=== PATIENT | male | born 1960 | race Caucasian/White ===

== ENCOUNTER 2020-11-25 19:51 | Emergency (ER) | payer OTHER, SELFPAY ==
--- NOTE | ~2020-11-25 | CT_ITS ---
EXAMINATION: CT ANGIOGRAM OF THE CHEST WITH AND WITHOUT CONTRAST (CT PULMONARY ANGIOGRAM FOR PE) CLINICAL INFORMATION: Reason for Exam Shortness of breath, COVID positive COMPARISON: Chest radiograph performed earlier today TECHNIQUE: Prior to contrast administration, noncontrast localization images were obtained. Subsequently, multidetector volumetric imaging was performed from the thoracic inlet to below the diaphragms following the administration of 65 mL Omnipaque 350 intravenous contrast. No contrast reaction reported Sagittal, coronal, and MIP oblique sagittal reformatted images were obtained on the CT workstation, uploaded to PACS, and reviewed. This CT examination was performed using dose optimization techniques as appropriate, variously including the following: *Automated exposure control *Adjustment of mA and/or kV according to patient size (this includes techniques or standardized protocols for targeted exams where dose is matched to indication/reason for exam; i.e. extremities or head) *Use of iterative reconstruction technique Total exam dose-length product 312 mGy-cm FINDINGS: QUALITY OF STUDY/CONTRAST BOLUS: Satisfactory. PULMONARY ARTERIES: No central or segmental pulmonary emboli. THORACIC AORTA: No aneurysm or dissection. LUNG: There are peripheral groundglass scattered opacities present in both lungs. Findings are suggestive of Covid 19. No gross lobar consolidation is seen. No suspicious lung masses are seen PLEURA: No pleural effusion or pneumothorax. MEDIASTINUM: Normal heart size. No pericardial effusion. No hilar or mediastinal lymphadenopathy. No evidence of septal bowing or right heart strain. CHEST WALL/AXILLA: No axillary or internal mammary lymphadenopathy. OSSEOUS STRUCTURES: No acute or suspicious osseous abnormality. UPPER ABDOMEN: A right lower pole renal cyst is present. No reflux of contrast into the hepatic veins to suggest elevated right heart pressures. CT/CT angio chest PE protocol IMPRESSION: 1. No pulmonary emboli detected. 2. Commonly reported imaging features of Covid 19 or viral pneumonia are present with multifocal peripheral groundglass infiltrates present. Other processes such as influenza pneumonia or organizing pneumonia, as can be seen with drug toxicity and connective tissue disease, can cause a similar imaging pattern. VTE: negative
--- NOTE | ~2020-11-25 | XR_ITS ---
EXAMINATION: XR CHEST CLINICAL INFORMATION: Shortness of breath. Covid positive COMPARISON: 04/07/2014 TECHNIQUE: Frontal view of the chest was obtained. FINDINGS: The heart and pulmonary vessels appear normal. There is some ill-defined opacity seen in the lungs which were not present previously. I would suspect that if a CT was performed, typical ground glass changes may be present. No gross consolidations. No pleural effusions XR/XR chest 1V IMPRESSION: Question of some minimal infiltrates in the lungs as described above.
[2020-11-25 20:32] VITALS: BP 121/85; PULSE 90; RESP 17; TEMP 37.8; O2SAT 95; BMI 28.0
--- NOTE | 2020-11-25 21:42 | ED.URI ---
HPI - URI/Sore Throat General Chief Complaint: Upper Respiratory Symptoms Stated Complaint: SOB/+Covid Time Seen by Provider: 11/26/20 01:49 Source: patient Mode of arrival: ambulatory Limitations: no limitations History of Present Illness HPI Narrative: 60-year-old male with recent diagnosis of COVID-19 worsening symptoms. States that he has a headache that has not gone away in a week, has a cough, shortness of breath, feels fatigued and near syncopal at times. He has had intermittent fevers and chills, and does not report any chest pain or pressure, palpitations, abdominal pain, abdominal distention, edema, loss of balance, falls, melena, hematochezia, dysuria, hematuria, or changes in vision. MD elicited complaint: fever, cough, rhinorrhea and nasal congestion Pertinent past history: other (COVID-19) Onset (ago): week(s) Consistency: constant Severity: moderate Description of mucous: clear and watery Able to tolerate fluids by mouth: Yes Exacerbating factors: speaking and deep breaths Relieving factors: nothing Associated symptoms: fever, chills, myalgias, headache, nasal congestion, sore throat, cough and shortness of breath Treatments prior to arrival: none Related Data Previous Rx's Medication Instructions Recorded albuterol sulfate 2 puff INHALATION Q4-6H PRN #8.5 g 11/26/20 benzonatate [Tessalon Perles] 100 mg PO TID PRN #60 cap 11/26/20 rnigqboayi-vfrdjowbkndjl-mqen 1 cap PO Q4-6H PRN #14 cap 11/26/20 [Fioricet] codeine-guaifenesin 10 ml PO Q4-6H PRN #473 ml 11/26/20 dexamethasone 6 mg PO DAILY 5 Days #5 tab 11/26/20 loratadine [Claritin] 10 mg PO DAILY PRN #30 tab 11/26/20 Allergies Allergy/AdvReac Type Severity Reaction Status Date / Time amoxicillin [AMOXICILLIN] Allergy Mild ITCHING Verified 11/25/20 22:17 Review of Systems Review of Systems: Constitutional: Positive headache, Positive Fever, positive Chills ENT/Mouth: No Hoarseness, No sore throat, No Rhinorrhea Eyes: No Redness, No Discharge, No Vision Changes Cardiovascular: No Chest Pain, positive SOB, positive Dyspnea on Exertion, No Edema Respiratory: positive Cough, No Sputum, positive Wheezing, Gastrointestinal: No Nausea, No Vomiting, No Diarrhea, No abdominal Pain Genitourinary: No Dysuria, No Hematuria Musculoskeletal: No joint pain, No Myalgias Skin: No rash Neuro: No Weakness, No Numbness, No Headache Psych: No anxiety, depression Heme/Lymph: No Bruising, No Bleeding Endocrine: No Polyuria, No Polydipsia Yes all other systems are reviewed and are negative [facility] Past Medical History Attestation statement: The following information was validated with the patient. Source: old records reviewed Medical History COVID-19 Hypercholesteremia Social History Social History Advance Directives: No Advance Directives Information Provided: No Physical Exam Vital Signs: Vital Signs: Last Vital Signs Temp 99.1 F 11/25/20 22:36 Pulse 67 11/26/20 01:32 Resp 18 11/26/20 01:32 BP 112/76 11/26/20 01:32 Pulse Ox 94 11/26/20 01:32 Body Mass Index 28.0 Appearance: Alert. Oriented X3. Moderate distress. Appears fatigued. Eyes: Pupils equal, round and reactive to light. ENT: Pharynx normal. Neck: Normal inspection. Neck supple. CVS: Normal heart rate and rhythm. Pulses normal. Respiratory: No respiratory distress. Breath sounds normal. Abdomen: Soft and nontender. Skin: Skin warm and dry. Normal skin color. Normal skin turgor. Extremities: No lower extremity edema. Neuro: No motor deficit. No sensory deficit. Course Course Course Narrative: 60-year-old male known COVID positive test about a week ago presents with worsening COVID-[address] PE study, ambulatory pulse ox and COVID labs. CT angio PE negative for pulmonary embolism, does have symptoms consistent with COVID-19. Patient is apprehensive about discharge home. Patient is not hypoxic, this case was discussed with hospitalist, patient does not meet admission criteria. Patient was offered case management social worker delinquency prevention, and possible [facility] facility or rehab placement. Patient declined. Will provide supportive measures and if patient's symptoms worsen he is more than welcome to return. Patient verbalized understanding of and agrees to plan of care discharge home. MDM - URI/Sore Throat MDM Narrative Medical decision making narrative: PE, COVID-19 Differential Diagnosis Differential diagnosis: Likely upper respiratory infection Medical Records Attestation: I reviewed the patient's medical records. Lab Data Attestation: I reviewed the patient's lab results. Result diagrams: 11/25/20 23:03 11/25/20 23:03 Labs: Lab Results 11/25/20 11/25/20 11/25/20 Range/Units 21:56 22:24 22:24 WBC (4.8-10.8) X10*3/uL RBC (4.60-5.80) X10*6/uL Hgb (14.0-18.0) g/dl Hct (42-52) % MCV (80-98) fL MCH (27.0-33.0) pg MCHC (31.0-36.0) g/dl RDW (11.0-16.0) % Plt Count (160-400) X10*3/uL MPV (9.4-12.4) fL Immature Gran % (Auto) (0.0-0.4) % Neut % (Auto) (45-73) % Lymph % (Auto) (20-40) % [place] % (Auto) (2-11) % Eos % (Auto) (0-4) % Baso % (Auto) (0-2) % Lymph # (Auto) (1.2-4.9) X10*3/uL [place] # (Auto) (0.1-1.2) X10*3/uL Eos # (Auto) (0.0-0.4) X10*3/uL Baso # (Auto) (0.0-0.2) X10*3/uL Abs Immat Gran (auto) (0.00-0.03) X10*3/uL Absolute Neuts (auto) (2.0-8.3) X10*3/uL Absolute Nucleated RBC (0.0-0.012) X10*3/uL Nucleated RBC % (auto) (0.0-0.2) /100WBC Smear Tech's Comments PT (10.8-13.0) SEC INR (0.9-1.1) APTT (24.1-38.0) SEC Sodium (135-145) mmol/L Potassium (3.3-5.1) mmol/L Chloride (96-108) mmol/L Carbon Dioxide (22-29) mmol/L Anion Gap (12-20) BUN (9-16) mg/dL Creatinine (0.5-1.4) mg/dL Estim Creat Clear Calc Estimated GFR Random Glucose (60-115) mg/dL Calcium (8.4-10.2) mg/dL Ferritin (20-250) ng/mL Lactate Dehydrogenase (118-273) U/L Total Creatine Kinase (38-174) U/L Troponin I High Sens 8.8 (<3.5-35.0) ng/L C-Reactive Protein (< or = 0.50) mg/dL Procalcitonin 0.07 ng/mL Coronavirus (PCR) POSITIVE A (Negative) Influenza Type A (PCR) NEGATIVE (Negative) Influenza Type B (PCR) NEGATIVE (Negative) RSV RNA Qual (PCR) NEGATIVE (Negative) 11/25/20 11/25/20 11/25/20 Range/Units 22:25 23:03 23:03 WBC 4.6 L (4.8-10.8) X10*3/uL RBC 4.96 (4.60-5.80) X10*6/uL Hgb 15.8 (14.0-18.0) g/dl Hct 44.9 (42-52) % MCV 90.5 (80-98) fL MCH 31.9 (27.0-33.0) pg MCHC 35.2 (31.0-36.0) g/dl RDW 12.2 (11.0-16.0) % Plt Count 134 L (160-400) X10*3/uL MPV 10.3 (9.4-12.4) fL Immature Gran % (Auto) 0.2 (0.0-0.4) % Neut % (Auto) 75.0 H (45-73) % Lymph % (Auto) 17.9 L (20-40) % [place] % (Auto) 6.5 (2-11) % Eos % (Auto) 0.2 (0-4) % Baso % (Auto) 0.2 (0-2) % Lymph # (Auto) 0.8 L (1.2-4.9) X10*3/uL [place] # (Auto) 0.3 (0.1-1.2) X10*3/uL Eos # (Auto) 0.0 (0.0-0.4) X10*3/uL Baso # (Auto) 0.0 (0.0-0.2) X10*3/uL Abs Immat Gran (auto) 0.01 (0.00-0.03) X10*3/uL Absolute Neuts (auto) 3.4 (2.0-8.3) X10*3/uL Absolute Nucleated RBC 0.000 (0.0-0.012) X10*3/uL Nucleated RBC % (auto) 0.0 (0.0-0.2) /100WBC Smear Tech's Comments VERIFIED PT 13.1 H (10.8-13.0) SEC INR 1.1 (0.9-1.1) APTT 34.0 (24.1-38.0) SEC Sodium (135-145) mmol/L Potassium (3.3-5.1) mmol/L Chloride (96-108) mmol/L Carbon Dioxide (22-29) mmol/L Anion Gap (12-20) BUN (9-16) mg/dL Creatinine (0.5-1.4) mg/dL Estim Creat Clear Calc Estimated GFR Random Glucose (60-115) mg/dL Calcium (8.4-10.2) mg/dL Ferritin 743 H (20-250) ng/mL Lactate Dehydrogenase 289 H (118-273) U/L Total Creatine Kinase 254 H (38-174) U/L Troponin I High Sens (<3.5-35.0) ng/L C-Reactive Protein 3.30 H (< or = 0.50) mg/dL Procalcitonin ng/mL Coronavirus (PCR) (Negative) Influenza Type A (PCR) (Negative) Influenza Type B (PCR) (Negative) RSV RNA Qual (PCR) (Negative) 11/25/20 Range/Units 23:03 WBC (4.8-10.8) X10*3/uL RBC (4.60-5.80) X10*6/uL Hgb (14.0-18.0) g/dl Hct (42-52) % MCV (80-98) fL MCH (27.0-33.0) pg MCHC (31.0-36.0) g/dl RDW (11.0-16.0) % Plt Count (160-400) X10*3/uL MPV (9.4-12.4) fL Immature Gran % (Auto) (0.0-0.4) % Neut % (Auto) (45-73) % Lymph % (Auto) (20-40) % [place] % (Auto) (2-11) % Eos % (Auto) (0-4) % Baso % (Auto) (0-2) % Lymph # (Auto) (1.2-4.9) X10*3/uL [place] # (Auto) (0.1-1.2) X10*3/uL Eos # (Auto) (0.0-0.4) X10*3/uL Baso # (Auto) (0.0-0.2) X10*3/uL Abs Immat Gran (auto) (0.00-0.03) X10*3/uL Absolute Neuts (auto) (2.0-8.3) X10*3/uL Absolute Nucleated RBC (0.0-0.012) X10*3/uL Nucleated RBC % (auto) (0.0-0.2) /100WBC Smear Tech's Comments PT (10.8-13.0) SEC INR (0.9-1.1) APTT (24.1-38.0) SEC Sodium 138 (135-145) mmol/L Potassium 4.6 (3.3-5.1) mmol/L Chloride 103 (96-108) mmol/L Carbon Dioxide 27 (22-29) mmol/L Anion Gap 13 (12-20) BUN 10 (9-16) mg/dL Creatinine 0.85 (0.5-1.4) mg/dL Estim Creat Clear Calc 103.0 Estimated GFR > 60 Random Glucose 134 H (60-115) mg/dL Calcium 8.7 (8.4-10.2) mg/dL Ferritin (20-250) ng/mL Lactate Dehydrogenase (118-273) U/L Total Creatine Kinase (38-174) U/L Troponin I High Sens (<3.5-35.0) ng/L C-Reactive Protein (< or = 0.50) mg/dL Procalcitonin ng/mL Coronavirus (PCR) (Negative) Influenza Type A (PCR) (Negative) Influenza Type B (PCR) (Negative) RSV RNA Qual (PCR) (Negative) Imaging Data CT PE: Attestation: I personally reviewed and interpreted this imaging study as follows: Radiologist's impression: EXAMINATION: CT ANGIOGRAM OF THE CHEST WITH AND WITHOUT CONTRAST (CT PULMONARY ANGIOGRAM FOR PE) CLINICAL INFORMATION: Reason for Exam Shortness of breath, COVID positive COMPARISON: Chest radiograph performed earlier today TECHNIQUE: Prior to contrast administration, noncontrast localization images were obtained. Subsequently, multidetector volumetric imaging was performed from the thoracic inlet to below the diaphragms following the administration of 65 mL Omnipaque 350 intravenous contrast. No contrast reaction reported Sagittal, coronal, and MIP oblique sagittal reformatted images were obtained on the CT workstation, uploaded to PACS, and reviewed. This CT examination was performed using dose optimization techniques as appropriate, variously including the following: *Automated exposure control *Adjustment of mA and/or kV according to patient size (this includes techniques or standardized protocols for targeted exams where dose is matched to indication/reason for exam; i.e. extremities or head) *Use of iterative reconstruction technique Total exam dose-length product 312 mGy-cm FINDINGS: QUALITY OF STUDY/CONTRAST BOLUS: Satisfactory. PULMONARY ARTERIES: No central or segmental pulmonary emboli. THORACIC AORTA: No aneurysm or dissection. LUNG: There are peripheral groundglass scattered opacities present in both lungs. Findings are suggestive of Covid 19. No gross lobar consolidation is seen. No suspicious lung masses are seen PLEURA: No pleural effusion or pneumothorax. MEDIASTINUM: Normal heart size. No pericardial effusion. No hilar or mediastinal lymphadenopathy. No evidence of septal bowing or right heart strain. CHEST WALL/AXILLA: No axillary or internal mammary lymphadenopathy. OSSEOUS STRUCTURES: No acute or suspicious osseous abnormality. UPPER ABDOMEN: A right lower pole renal cyst is present. No reflux of contrast into the hepatic veins to suggest elevated right heart pressures. CT/CT angio chest PE protocol IMPRESSION: 1. No pulmonary emboli detected. 2. Commonly reported imaging features of Covid 19 or viral pneumonia are present with multifocal peripheral groundglass infiltrates present. Other processes such as influenza pneumonia or organizing pneumonia, as can be seen with drug toxicity and connective tissue disease, can cause a similar imaging pattern. VTE: negative Chest x-ray: Attestation: I personally reviewed and interpreted this imaging study as follows: Radiologist's impression: EXAMINATION: XR CHEST CLINICAL INFORMATION: Shortness of breath. Covid positive COMPARISON: 04/07/2014 TECHNIQUE: Frontal view of the chest was obtained. FINDINGS: The heart and pulmonary vessels appear normal. There is some ill-defined opacity seen in the lungs which were not present previously. I would suspect that if a CT was performed, typical ground glass changes may be present. No gross consolidations. No pleural effusions XR/XR chest 1V IMPRESSION: Question of some minimal infiltrates in the lungs as described above. ECG Data Attestation: I personally reviewed and interpreted this ECG as follows: ECG interpretation date: 11/25/20 ECG interpretation time: 22:10 Interpretation: Vent. rate 87 BPM ND interval 182 ms QRS duration 94 ms QT/QTc 350/421 ms P-R-T axes 80 -64 10 Normal sinus rhythm Pulmonary disease pattern Incomplete right bundle branch block Left anterior fascicular block Abnormal ECG When compared with ECG of 30-SEP-2010 14:03, Vent. rate has increased BY 33 BPM Nonspecific T wave abnormality has replaced inverted T waves in Inferior leads Discharge Plan Discharge Clinical Impression: COVID-19 Patient Disposition: Home, Self-Care Instructions: COVID-19 (Coronavirus Disease 2019) (ED) Additional Instructions: You were evaluated for COVID-19 symptoms[address] We did a CT angiogram of your lungs, you do not have any blood clots. Please take albuterol inhaler 2 puffs every 4 hours as needed, Tessalon Perles 200 mg every 8 hours as needed. Please use Robitussin AC if Tessalon Perles are ineffective. You may use Fioricet for headaches. Please drink plenty of fluids. Follow-up with primary care provider as needed. If symptoms worsen please return to the emergency department. Thank you for choosing this emergency department for evaluation. Please follow-up with primary care physician as needed. Return to the emergency department for any new, concerning, or worsening symptoms. Prescriptions: New benzonatate [Tessalon Perles] 100 mg capsule 100 mg PO TID PRN (Reason: cough) Qty: 60 RF: 0 dexamethasone 6 mg tablet 6 mg PO DAILY 5 Days Qty: 5 RF: 0 codeine-guaifenesin 6.3-100 mg/5 mL liquid 10 ml PO Q4-6H PRN (Reason: cough) Qty: 473 RF: 0 omqdkhdlyv-bylfvupgqlpjq-cifw [Fioricet] 50-300-40 mg capsule 1 cap PO Q4-6H PRN (Reason: pain, headache) Qty: 14 RF: 0 albuterol sulfate 90 mcg/actuation HFA aerosol inhaler 2 puff inhalation Q4-6H PRN (Reason: shortness of breath or wheezing) Qty: 8.5 RF: 0 loratadine [Claritin] 10 mg tablet 10 mg PO DAILY PRN (Reason: allergy symptoms, postnasal drip) Qty: 30 RF: 0 Interventions: ED Discharge Assessment Last Done: 11/26/20 02:18 Discharge Date/Time: 11/26/20 02:19
--- NOTE | 2020-11-25 22:00 | ECG_ITS ---
Test Reason : SOB Blood Pressure : / mmHG Vent. Rate : 087 BPM Atrial Rate : 087 BPM P-R Int : 182 ms QRS Dur : 094 ms QT Int : 350 ms P-R-T Axes : 080 -64 010 degrees QTc Int : 421 ms Normal sinus rhythm Pulmonary disease pattern Incomplete right bundle branch block Left anterior fascicular block Abnormal ECG When compared with ECG of 30-SEP-2010 14:03, Vent. rate has increased BY 33 BPM Nonspecific T wave abnormality has replaced inverted T waves in Inferior leads Referred By: Melissa Perez Electronically Signed By:Uli Godfrey
[2020-11-25] MEDS: Benzonatate 100 MG CAPSULE 200 MG PO (22:25)
[2020-11-25] MEDS: dexAMETHasone sod phosphate 4 MG/ML VIAL 6 MG IVPUSH (22:25)
[2020-11-25] MEDS: guaiFEN/Codeine SF 200/20/10ML 10 ML LIQUID PO (22:25)
[2020-11-25 22:36] VITALS: BP 132/82; PULSE 78; RESP 20; TEMP 37.3; O2SAT 95
[2020-11-25 22:50] LABS: Influenza A PCR NEGATIVE (Negative); Influenza B PCR NEGATIVE (Negative); Resp Syncy Virus RNA Qual PCR NEGATIVE (Negative); SARS COV2 PCR INHOUSE POSITIVE (Negative)
[2020-11-25 23:01] LABS: Troponin-I High Sensitivity 8.8 ng/L (<3.5-35.0)
[2020-11-25 23:08] LABS: Basophils Percent Auto 0.2 % (0-2); Eosinophils Percent Auto 0.2 % (0-4); Imm Gran Abs Auto 0.01 X10*3/uL (0.00-0.03); Imm Gran Pct Auto 0.2 % (0.0-0.4); MANUAL DIFF FLAG SCAN; Mean Platelet Volume 10.3 fL (9.4-12.4); Monocytes Absolute Auto 0.3 X10*3/uL (0.1-1.2); PLT CLUMP 1; Red Cell Distribution Width 12.2 % (11.0-16.0); SCAN SMEAR FLAG 1
[2020-11-25 23:10] LABS: Hematocrit 44.9 % (42-52); Hemoglobin 15.8 g/dl (14.0-18.0); Lymphocytes Absolute Auto 0.8 X10*3/uL (1.2-4.9); Lymphocytes Percent Auto 17.9 % (20-40); Mean Corpuscular HGB Conc 35.2 g/dl (31.0-36.0); Mean Corpuscular Hemoglobin 31.9 pg (27.0-33.0); Mean Corpuscular Volume 90.5 fL (80-98); Monocytes Percent Auto 6.5 % (2-11); Neutrophils Absolute Auto 3.4 X10*3/uL (2.0-8.3); Platelet Count 134 X10*3/uL (160-400); Red Blood Count 4.96 X10*6/uL (4.60-5.80); White Blood Count 4.6 X10*3/uL (4.8-10.8)
[2020-11-25 23:12] LABS: SLIDE REVIEW VERIFIED
[2020-11-25 23:14] LABS: INTERNATIONAL NORM RATIO 1.1 (0.9-1.1); Prothrombin Time 13.1 SEC (10.8-13.0)
[2020-11-25 23:20] LABS: Lactate Dehydrogenase 289 U/L (118-273)
[2020-11-25 23:28] LABS: Anion Gap 13 (12-20); Blood Urea Nitrogen 10 mg/dL (9-16); Calcium 8.7 mg/dL (8.4-10.2); Carbon Dioxide 27 mmol/L (22-29); Chloride 103 mmol/L (96-108); Estimated Glomerular Filt Rate > 60; Glucose Random 134 mg/dL (60-115); Potassium 4.6 mmol/L (3.3-5.1); Sodium 138 mmol/L (135-145)
[2020-11-25 23:28] LABS: Ferritin 743 ng/mL (20-250)
[2020-11-25 23:34] LABS: Procalcitonin 0.07 ng/mL
--- NOTE | 2020-11-25 23:46 | PC.NURSE ---
Pt ambulatory with steady gait to CT for CTA
[2020-11-26] MEDS: iohexoL 350 MG/ML 100 ML INFUS..BTL 65 ML IV (00:06)
[2020-11-26 01:13] VITALS: O2SAT 93
[2020-11-26 01:32] VITALS: BP 112/76; PULSE 67; RESP 18; O2SAT 94
[2020-11-26] MEDS: Loratadine 10 MG TABLET PO (01:34)
[2020-11-26] MEDS: Butalb/Acetamin/Caff 50/325/40 TABLET 1 TAB PO (01:34)
[2020-11-26] MEDS: Albuterol Sulfate 90 MCG 8 GM INHALER 2 PUFF INHALE (01:34)
== END 2020-11-26 02:19 | disposition home or self-care (01) ==
PROVIDERS: Nurse Practitioner Family; Emergency Provider Emergency Medicine Emergency Medical Services; PCP Internal Medicine
DX: U07.1 COVID-19 (principal); R06.02 Shortness of breath; R50.9 Fever, unspecified; R51.9 Headache, unspecified; Z79.899 Other long term (current) drug therapy
CPT/HCPCS: 0241U; 36415; 71045; 71275; 80048; 82550; 82728; 83615; 84145; 84484; 85025; 85610; 85730; 86140; 93005; 96374; 99284; J1100; Q9967

== ENCOUNTER 2020-12-25 08:12 | Outpatient (REF) | payer OTHER, SELFPAY ==
--- NOTE | ~2020-12-25 | XR_ITS ---
EXAMINATION: XR CHEST CLINICAL INFORMATION: Covid 19. SOB. COMPARISON: Chest x-ray 11/25/2020 TECHNIQUE: 2 views of the chest were obtained. FINDINGS: The lungs are hyperinflated but clear. The heart size and vascularity is normal. No gross bony abnormality. No change from 11/25/2020 XR/XR chest 2V IMPRESSION: Hyperinflated lungs without acute process. There is no infiltrate seen at this time.
[2020-12-25 11:24] LABS: MANUAL DIFF FLAG NO
[2020-12-25 11:40] LABS: Basophils Percent Auto 0.4 % (0-2); Eosinophils Absolute Auto 0.2 X10*3/uL (0.0-0.4); Eosinophils Percent Auto 3.9 % (0-4); Hematocrit 42.8 % (42-52); Hemoglobin 14.9 g/dl (14.0-18.0); Imm Gran Abs Auto 0.01 X10*3/uL (0.00-0.03); Imm Gran Pct Auto 0.2 % (0.0-0.4); Lymphocytes Percent Auto 35.4 % (20-40); Mean Corpuscular HGB Conc 34.8 g/dl (31.0-36.0); Mean Corpuscular Hemoglobin 31.5 pg (27.0-33.0); Mean Corpuscular Volume 90.5 fL (80-98); Mean Platelet Volume 10.6 fL (9.4-12.4); Monocytes Absolute Auto 0.6 X10*3/uL (0.1-1.2); Monocytes Percent Auto 10.7 % (2-11); Neutrophils Absolute Auto 2.8 X10*3/uL (2.0-8.3); Neutrophils Percent Auto 49.4 % (45-73); Platelet Count 230 X10*3/uL (160-400); Red Blood Count 4.73 X10*6/uL (4.60-5.80); Red Cell Distribution Width 12.7 % (11.0-16.0); White Blood Count 5.6 X10*3/uL (4.8-10.8)
[2020-12-25 11:45] LABS: Prothrombin Time 11.9 SEC (10.8-13.0)
[2020-12-25 12:12] LABS: Alanine Aminotransferase 49 U/L (0-40); Albumin Level 4.2 g/dL (3.5-5.0); Alkaline Phosphatase 53 U/L (39-117); Anion Gap 13 (12-20); Aspartate Amino Transferase 28 U/L (5-37); Bilirubin Total 0.7 mg/dL (0.0-1.0); Blood Urea Nitrogen 19 mg/dL (9-16); C Reactive Protein 0.16 mg/dL (< or = 0.50); Calcium 9.3 mg/dL (8.4-10.2); Carbon Dioxide 26 mmol/L (22-29); Chloride 105 mmol/L (96-108); Estimated Glomerular Filt Rate > 60; Glucose Random 106 mg/dL (60-115); Lactate Dehydrogenase 204 U/L (118-273); Potassium 4.3 mmol/L (3.3-5.1); Sodium 140 mmol/L (135-145); Total Protein 6.8 g/dL (6.5-8.0)
[2020-12-25 12:40] LABS: Ferritin 534 ng/mL (20-250)
[2020-12-28 07:39] LABS: SARS COV2 IgG Positive (Negative)
== END 2020-12-25 08:13 | disposition home or self-care (01) ==
LOC: HO.HMGCX 08:12
PROVIDERS: PCP Internal Medicine; Visit Provider Internal Medicine
DX: U07.1 COVID-19 (principal)
CPT/HCPCS: 36415; 71046; 80053; 82550; 82728; 83615; 85025; 85610; 86140; 86769

== ENCOUNTER 2021-04-29 06:35 | Outpatient (REF) | payer OTHER, SELFPAY ==
[2021-04-29 11:37] LABS: MANUAL DIFF FLAG NO
[2021-04-29 11:42] LABS: Appearance Urine CLEAR; Color Urine YELLOW; Glucose Urine UA NEG (NEG); Leukocyte Esterase Urine NEG (NEG); Nitrite Urine NEG (NEG); Specific Gravity - Urine 1.015 (1.005-1.025); Urine Blood NEG (NEG); Urine Ketones NEG (NEG); Urine Protein NEG (NEG-TRACE)
[2021-04-29 11:47] LABS: Basophils Percent Auto 0.9 % (0-2); Eosinophils Absolute Auto 0.3 X10*3/uL (0.0-0.4); Eosinophils Percent Auto 5.6 % (0-4); Hematocrit 43.8 % (42-52); Hemoglobin 15.2 g/dl (14.0-18.0); Imm Gran Abs Auto 0.01 X10*3/uL (0.00-0.03); Imm Gran Pct Auto 0.2 % (0.0-0.4); Lymphocytes Absolute Auto 1.8 X10*3/uL (1.2-4.9); Mean Corpuscular HGB Conc 34.7 g/dl (31.0-36.0); Mean Corpuscular Hemoglobin 31.5 pg (27.0-33.0); Mean Corpuscular Volume 90.7 fL (80-98); Mean Platelet Volume 10.9 fL (9.4-12.4); Monocytes Absolute Auto 0.5 X10*3/uL (0.1-1.2); Monocytes Percent Auto 10.5 % (2-11); Neutrophils Absolute Auto 1.9 X10*3/uL (2.0-8.3); Neutrophils Percent Auto 41.8 % (45-73); Platelet Count 202 X10*3/uL (160-400); Red Blood Count 4.83 X10*6/uL (4.60-5.80); White Blood Count 4.5 X10*3/uL (4.8-10.8)
[2021-04-29 12:01] LABS: Alanine Aminotransferase 19 U/L (0-40); Alkaline Phosphatase 42 U/L (39-117); Anion Gap 11 (12-20); Aspartate Amino Transferase 17 U/L (5-37); Blood Urea Nitrogen 15 mg/dL (9-16); Calcium 9.2 mg/dL (8.4-10.2); Carbon Dioxide 27 mmol/L (22-29); Chloride 106 mmol/L (96-108); Cholesterol 183 mg/dL; Estimated Glomerular Filt Rate > 60; Glucose Fasting 111 mg/dL (60-99); HDL Cholesterol 52 mg/dL; LDL Cholesterol Calculated 112 mg/dl; Potassium 4.2 mmol/L (3.3-5.1); Sodium 140 mmol/L (135-145); Total Protein 6.4 g/dL (6.5-8.0); Triglycerides 97 mg/dL
[2021-04-29 12:14] LABS: PSA,Total (Free>4and<10) 1.51 ng/mL (0.00-4.00); Thyroid Stimulating Hormone 3.15 uIU/mL (0.32-4.0); Vitamin D 25-OH Total 22.2 ng/mL (>30)
[2021-04-29 12:26] LABS: RBC Urine 0 /HPF (0); WBC Urine 0 /HPF (0-4)
== END 2021-04-29 06:36 | disposition home or self-care (01) ==
LOC: HO.HMGCLDS 06:35
PROVIDERS: PCP Internal Medicine; Visit Provider Internal Medicine
DX: Z00.00 Encounter for general adult medical examination without abnormal findings (principal); Z12.5 Encounter for screening for malignant neoplasm of prostate; E78.00 Pure hypercholesterolemia, unspecified; I10 Essential (primary) hypertension
CPT/HCPCS: 36415; 80053; 80061; 81001; 82306; 84153; 84443; 85025

== ENCOUNTER 2022-05-05 06:29 | Outpatient (REF) | payer OTHER, SELFPAY ==
[2022-05-05 11:34] LABS: MANUAL DIFF FLAG NO
[2022-05-05 11:46] LABS: Basophils Absolute Auto 0.1 X10*3/uL (0.0-0.2); Basophils Percent Auto 0.9 % (0-2); Eosinophils Absolute Auto 0.3 X10*3/uL (0.0-0.4); Eosinophils Percent Auto 5.6 % (0-4); Hematocrit 45.1 % (42.0-52.0); Hemoglobin 15.8 g/dl (14.0-18.0); Imm Gran Abs Auto 0.01 X10*3/uL (0.00-0.03); Imm Gran Pct Auto 0.2 % (0.0-0.4); Lymphocytes Absolute Auto 2.2 X10*3/uL (1.2-4.9); Lymphocytes Percent Auto 39.5 % (20-40); Mean Corpuscular Hemoglobin 30.9 pg (27.0-33.0); Mean Corpuscular Volume 88.3 fL (80.0-98.0); Mean Platelet Volume 10.6 fL (9.4-12.4); Monocytes Absolute Auto 0.5 X10*3/uL (0.1-1.2); Monocytes Percent Auto 9.7 % (2-11); Neutrophils Absolute Auto 2.4 x10*3/uL (2.0-8.3); Neutrophils Percent Auto 44.1 % (45-73); Platelet Count 233 X10*3/uL (160-400); Red Blood Count 5.11 X10*6/uL (4.60-5.80); Red Cell Distribution Width 12.6 % (11.0-16.0); White Blood Count 5.5 X10*3/uL (4.8-10.8)
[2022-05-05 11:58] LABS: Appearance Urine Clear; Color Urine Yellow; Glucose Urine UA Negative (Negative); Leukocyte Esterase Urine Negative (Negative); Nitrite Urine Negative (Negative); Urine Blood Negative (Negative); Urine Ketones Negative (Negative); Urine Protein Negative (Neg-Trace)
[2022-05-05 12:05] LABS: Bacteria Urine None Seen (None Seen); Hyaline Casts Urine 0-2 /LPF (0-2); RBC Urine 0-2 /HPF (0-2); Squamous Epithelial Cell Urine 0-2 /HPF (0-2); WBC Urine 0-5 /HPF (0-5)
[2022-05-05 12:10] LABS: Alanine Aminotransferase 24 U/L (0-40); Albumin Level 4.2 g/dL (3.5-5.0); Alkaline Phosphatase 47 U/L (39-117); Anion Gap 14 (12-20); Aspartate Amino Transferase 19 U/L (5-37); Bilirubin Total 1.2 mg/dL (0.0-1.0); Blood Urea Nitrogen 17 mg/dL (9-16); Calcium 9.2 mg/dL (8.4-10.2); Carbon Dioxide 25 mmol/L (22-29); Chloride 105 mmol/L (96-108); Cholesterol 203 mg/dL; Estimated Glomerular Filt Rate > 60; Glucose Fasting 109 mg/dL (60-99); HDL Cholesterol 53 mg/dL; LDL Cholesterol Calculated 129 mg/dl; Potassium 4.4 mmol/L (3.3-5.1); Sodium 140 mmol/L (135-145); Total Protein 6.6 g/dL (6.5-8.0); Triglycerides 106 mg/dL
[2022-05-05 12:33] LABS: PSA,Total (Free>4and<10) 1.67 ng/mL (0.00-4.00); Thyroid Stimulating Hormone 2.14 uIU/mL (0.32-4.0); Vitamin D 25-OH Total 21.1 ng/mL (>30)
== END 2022-05-05 06:30 | disposition home or self-care (01) ==
LOC: HO.HMGCLDS 06:29
PROVIDERS: PCP Internal Medicine; Visit Provider Internal Medicine
DX: Z00.00 Encounter for general adult medical examination without abnormal findings (principal); Z12.5 Encounter for screening for malignant neoplasm of prostate; E78.00 Pure hypercholesterolemia, unspecified; I10 Essential (primary) hypertension
CPT/HCPCS: 36415; 80053; 80061; 81001; 82306; 84153; 84443; 85025

== ENCOUNTER 2022-06-17 15:23 | Outpatient (REF) | payer OTHER, SELFPAY ==
[2022-06-20 09:17] LABS: ~Hepatitis B Surface Antibody NONREACTIVE (Nonreactive)
[2022-06-22 07:46] LABS: Hepatitis A Antibody IgG Nonreactive (Nonreactive); ~Hepatitis A Antibody IgG 0.24 S/CO (0.00-0.99)
== END 2022-06-17 15:24 | disposition home or self-care (01) ==
LOC: HO.HMGCLDS 15:23
PROVIDERS: PCP Internal Medicine; Visit Provider Internal Medicine
DX: Z78.9 Other specified health status (principal)
CPT/HCPCS: 36415; 86706; 86708

== ENCOUNTER 2023-05-04 06:30 | Outpatient (REF) | payer OTHER, SELFPAY ==
[2023-05-04 11:19] LABS: MANUAL DIFF FLAG NO
[2023-05-04 11:30] LABS: Basophils Percent Auto 0.8 % (0-2); Eosinophils Absolute Auto 0.2 X10*3/uL (0.0-0.4); Eosinophils Percent Auto 3.4 % (0-4); Hematocrit 44.8 % (42.0-52.0); Hemoglobin 15.7 g/dl (14.0-18.0); Imm Gran Abs Auto 0.01 X10*3/uL (0.00-0.03); Imm Gran Pct Auto 0.2 % (0.0-0.4); Lymphocytes Absolute Auto 2.1 X10*3/uL (1.2-4.9); Lymphocytes Percent Auto 39.8 % (20-40); Mean Corpuscular Hemoglobin 32.3 pg (27.0-33.0); Mean Corpuscular Volume 92.2 fL (80.0-98.0); Monocytes Absolute Auto 0.5 X10*3/uL (0.1-1.2); Monocytes Percent Auto 9.8 % (2-11); Neutrophils Absolute Auto 2.4 x10*3/uL (2.0-8.3); Platelet Count 222 X10*3/uL (160-400); Red Blood Count 4.86 X10*6/uL (4.60-5.80); Red Cell Distribution Width 12.7 % (11.0-16.0); White Blood Count 5.2 X10*3/uL (4.8-10.8)
[2023-05-04 11:55] LABS: Alanine Aminotransferase 17 U/L (0-40); Albumin Level 4.2 g/dL (3.5-5.0); Alkaline Phosphatase 43 U/L (39-117); Anion Gap 13 (12-20); Aspartate Amino Transferase 19 U/L (5-37); Bilirubin Total 1.5 mg/dL (0.0-1.0); Blood Urea Nitrogen 13 mg/dL (9-16); Calcium 9.6 mg/dL (8.4-10.2); Carbon Dioxide 26 mmol/L (22-29); Chloride 107 mmol/L (96-108); Cholesterol 194 mg/dL (<200); Estimated Glomerular Filt Rate > 60; Glucose Fasting 111 mg/dL (60-99); HDL Cholesterol 54 mg/dL (>40); LDL Cholesterol Calculated 117 mg/dL (<100); Potassium 4.6 mmol/L (3.3-5.1); Sodium 141 mmol/L (135-145); Total Protein 6.9 g/dL (6.5-8.0); Triglycerides 116 mg/dL (<150)
[2023-05-04 12:10] LABS: PSA,Total (Free>4and<10) 1.53 ng/mL (0.00-4.00)
[2023-05-04 12:13] LABS: Thyroid Stimulating Hormone 2.91 uIU/mL (0.32-4.0)
== END 2023-05-04 06:31 | disposition home or self-care (01) ==
LOC: HO.HMGCLDS 06:30
PROVIDERS: PCP Internal Medicine; Visit Provider Internal Medicine
DX: Z00.00 Encounter for general adult medical examination without abnormal findings (principal); Z12.5 Encounter for screening for malignant neoplasm of prostate; E78.00 Pure hypercholesterolemia, unspecified; E55.9 Vitamin D deficiency, unspecified; I10 Essential (primary) hypertension
CPT/HCPCS: 36415; 80053; 80061; 82306; 84153; 84443; 85025

== ENCOUNTER 2024-01-02 07:25 | Day surgery (SDC) | payer OTHER, SELFPAY ==
[2023-12-28 14:21] VITALS: BMI 28.6
--- NOTE | 2023-12-29 10:11 | HO.ANESPROP2 ---
HPI - Anesthesia Eval Consult details Narrative: 63yo M for Colonoscopy PMFSH Active Problems Active Problems: All Active Problems COVID-19 (Acute) Past Medical History Medical History Elevated cholesterol Anxiety and depression Hypercholesteremia Surgical History Surgical History Hx of excision of mass Hx of rotator cuff surgery Hx of knee surgery H/O colonoscopy Social History Social History Are you DNR?: No Advance Directives: No Advance Directives Information Provided: Yes Nutrition Risks: No Nutritional Risk Meds Allergies Allergy/AdvReac Type Severity Reaction Status Date / Time amoxicillin [AMOXICILLIN] Allergy Mild ITCHING Verified 11/25/20 22:17 Home Medications ?Medication ?Instructions ?Recorded ?Confirmed ?Last Taken ?Type alprazolam 1 mg tablet 0.5 mg PO BID PRN Anxiety 12/28/23 12/28/23 Unknown History ibuprofen 200 mg tablet (Advil) 400 mg PO Q6H PRN Pain 12/28/23 12/28/23 10/31/23 History pravastatin 20 mg tablet 20 mg PO DAILY 12/28/23 12/28/23 Unknown History Exam Height,Weight and Vital Signs: Height 5 ft 9.25 in Weight 88.451 kg Assessment and Plan Assessment Anesthesia Assessment: Chart Reviewed
[2024-01-02 07:53] VITALS: BP 140/88; PULSE 69; RESP 18; TEMP 36.9; O2SAT 98; BMI 28.9
--- NOTE | 2024-01-02 08:04 | P.CONAN_ITS ---
[facility] Active Problems Active Problems: All Active Problems COVID-19 (Acute) Past Medical History Medical History Elevated cholesterol Anxiety and depression Hypercholesteremia Functional capacity: independent ambulation Family History Family history of problems with anesthesia: No Surgical History Surgical History Hx of excision of mass Hx of rotator cuff surgery Hx of knee surgery H/O colonoscopy History of Problems with Anesthesia: No Social History Social History Are you DNR?: No Advance Directives: No Advance Directives Information Provided: Yes Nutrition Risks: No Nutritional Risk Meds Allergies Allergy/AdvReac Type Severity Reaction Status Date / Time amoxicillin [AMOXICILLIN] Allergy Mild ITCHING Verified 11/25/20 22:17 Active Medications: Current Medications Lactated Ringer's (Lr) 1,000 mls @ 100 mls/hr IVCONT .Q10H CARLITO Home Medications ?Medication ?Instructions ?Recorded ?Confirmed ?Last Taken ?Type alprazolam 1 mg tablet 0.5 mg PO BID PRN Anxiety 12/28/23 12/28/23 Unknown History ibuprofen 200 mg tablet (Advil) 400 mg PO Q6H PRN Pain 12/28/23 12/28/23 10/31/23 History pravastatin 20 mg tablet 20 mg PO DAILY 12/28/23 12/28/23 Unknown History Exam Height,Weight and Vital Signs: Height 5 ft 9.25 in Weight 89.3 kg Last Vital Signs Temp 98.4 F 01/02/24 07:53 Pulse 69 01/02/24 07:53 Resp 18 01/02/24 07:53 BP 140/88 H 01/02/24 07:53 Pulse Ox 98 01/02/24 07:53 O2 Del Method Room Air 01/02/24 07:53 Airway Mallampati Class: II TM Dist: >3cm Neck ROM: Full Heart: RRR Lungs: CTA Assessment and Plan Assessment Anesthesia Assessment: Anesthesia Plan Discussed Final Anesthetic Review Family History of Problems with Anesthesia: No History of Problems with Anesthesia: No ASA Class: II Final Preanesthetic Review: Meds/Allgs Chart Reviewed, Consent Obtained/Reviewed and Anes Risks/Benef Reviewed Patient Risk: Low Procedure Risk: Low Anesthetic Plan Anesthetic Plan: MAC: Disposition: Standard PACU
--- NOTE | 2024-01-02 08:18 | PC.NURSE ---
PT ON THE TIOLET BECAME DIAPHORETIC AND DIZZY AFTER PUSHING PT TO BED VSS STS FEELING BETTER AFTER LAYING DOWN
[2024-01-02 08:19] VITALS: BP 132/67; PULSE 54; RESP 18; TEMP 36.5; O2SAT 98
--- NOTE | 2024-01-02 08:28 | PC.NURSE ---
FLEETS GIVEN WITH LIQUID TANNISH RESULTS NO SOLIDS
[2024-01-02 08:49] VITALS: BP 124/69; PULSE 57; RESP 18; O2SAT 97
--- NOTE | 2024-01-02 09:14 | P.HPSUR_ITS ---
Pre-Procedural Eval Section A - 24 Hr Update-Section A only Date of Service: 01/02/24 Section B - Complete if H&P > 30 days Chief Complaint: hx colonic polyps,screening Details of Present Illness: see H&P no changes Relevant Family History (Specify if Yes): No Relevant Social History: None Present Medications: see Short Stay Collaborative assessment Medical History: No relevant PMH History of Previous Operations: No relevant previous surgery Allergies: Allergies Allergy/AdvReac Type Severity Reaction Status Date / Time amoxicillin [AMOXICILLIN] Allergy Mild ITCHING Verified 11/25/20 22:17 Review of Systems Sugical H&P ROS: Negative: Constitution, Cardiovascular, Respiratory, Neurological, Psychiatric, Hem-Onc, Allergic/Immunologic, Gastrointestinal, Genitourinary, Musculoskeletal, Integumentary, Endocrine and Eyes/Ears/Nose/T hroat Exam Surgical H&P Exam: Normal: HEENT, Normal: Heart, Normal: Lungs, Normal: Extremities, Normal: Abdomen, Normal: Skin and Normal: Neurological Plan Diagnosis/Plan: Unchanged I have reviewed the history and physical and performed a pertinent physical examination on my patient. No changes have occurred unless specified. Time Spent With Patient Time: Total time managing care of this patient today ____ minutes.
[2024-01-02 10:08] VITALS: BP 106/71; PULSE 69; RESP 16; TEMP 36.3; O2SAT 97
--- NOTE | 2024-01-02 10:15 | OP_ITS ---
DATE OF SERVICE: 01/02/2024 SURGEON: Valdez Amador MD INDICATIONS: Colon cancer screening. PREOPERATIVE DIAGNOSIS: POSTOPERATIVE DIAGNOSIS: PROCEDURE PERFORMED: Colonoscopy to the terminal ileum. ESTIMATED BLOOD LOSS: COMPLICATIONS: ANESTHESIA: Monitored anesthesia care. ASSISTANTS: SPECIMENS: DESCRIPTION OF PROCEDURE: A history and physical was performed. The risks and benefits of the procedure were explained to the patient and informed consent was obtained. The patient was placed in the left lateral decubitus position. A digital rectal exam was performed and was found to be normal. The Olympus pediatric video colonoscope was introduced into the rectum and advanced to the cecum. The cecum was identified by transillumination, palpation, and identification of ileocecal valve. Examination was performed and the scope was removed. He tolerated the procedure well and was returned to recovery area in stable condition. FINDINGS: The terminal ileum was briefly examined and appeared normal. The visualized colonic mucosa was normal. The quality of the prep was fair with some undigested food material, limiting the examination in the sigmoid and rectum as well as parts of the right colon. No polyps were identified. Retroflexed examination showed internal hemorrhoids. IMPRESSION: Normal colonoscopy. RECOMMENDATIONS: 1. Follow up as needed. 2. Repeat colonoscopy is recommended in 5 years. MD HOSEA Lima/MODL / [id number]
[2024-01-02 10:21] VITALS: BP 117/84; PULSE 60; RESP 16; TEMP 36.1; O2SAT 97
--- NOTE | 2024-01-02 10:56 | HO.POSTANES ---
Post Anesthesia Evaluation Post Anesthesia Evaluation Date of Service: 01/02/24 Vital Signs: Vital Signs Temp Pulse Resp BP Pulse Ox O2 Del Method 01/02/24 10:21 97 F 60 16 117/84 97 Room Air 01/02/24 10:08 97.3 F 69 16 106/71 97 Room Air 01/02/24 08:49 57 18 124/69 97 Room Air 01/02/24 08:19 97.7 F 54 18 132/67 98 Nasal Cannula 01/02/24 07:53 98.4 F 69 18 140/88 H 98 Room Air Anesthesia: Monitored Mental Status: Awake Pain Control: Satisfactory Nausea/Vomiting: None Hydration: Adequate Anesthesia-Related Issues: No Anes. Related Issues
== END 2024-01-02 11:04 | disposition home or self-care (01) ==
PROVIDERS: PCP Internal Medicine; Visit Provider Internal Medicine Gastroenterology
PROC: 0DJD8ZZ Inspection of Lower Intestinal Tract, Via Natural or Artificial Opening Endoscopic (ICD-10-PCS; CPT 45378; principal; 2024-01-02 09:10)
DX: Z12.11 Encounter for screening for malignant neoplasm of colon (principal); K64.8 Other hemorrhoids; Z86.010 Personal history of colon polyps; Z88.0 Allergy status to penicillin
CPT/HCPCS: 45378; J0461; J1596; J2704

== ENCOUNTER 2024-01-22 10:28 | Outpatient (REF) | payer OTHER, SELFPAY ==
--- NOTE | ~2024-01-22 | US_ITS ---
EXAMINATION: US SCROTUM CLINICAL INFORMATION: Mass of left testicle. COMPARISON: None available. TECHNIQUE: A sonogram of the scrotum was performed assessing sanz-scale appearance and color Doppler flow. Spectral Doppler analysis of the arterial and venous flow were performed in the testes bilaterally. FINDINGS: RIGHT: Right testicle measures 4.3 x 2.2 x 3.1 cm, volume 15.4 mL. No testicular mass. Spectral Doppler analysis of the arterial and venous flow is normal in the right testis. The right epididymis is prominent which may relate to history of vasectomy. No right hydrocele or varicocele is seen. Right epididymal Doppler flow is normal. LEFT: Left testicle measures 4.5 x 2.3 x 2.9 cm, volume 15.7 mL. No testicular mass. Spectral Doppler analysis of the arterial and venous flow is normal in the left testis. The left epididymis is prominent which may relate to history of vasectomy. There is a 5 mm focal isoechoic avascular lesion in the epididymal tail which is nonspecific but could be a megasperm. No left hydrocele or varicocele is seen. Left epididymal Doppler flow is normal. US/US scrotum IMPRESSION: No visible testicular mass. 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 Recommend clinical correlation with physical exam and short-term follow-up scrotal ultrasound in 3 months.
== END 2024-01-22 10:29 | disposition home or self-care (01) ==
LOC: HO.HMGCX 10:28
PROVIDERS: PCP Internal Medicine; Visit Provider Internal Medicine
DX: N50.89 Other specified disorders of the male genital organs (principal)
CPT/HCPCS: 76870

== ENCOUNTER 2024-04-29 08:24 | Outpatient (REF) | payer OTHER, SELFPAY ==
--- NOTE | ~2024-04-29 | US_ITS ---
EXAMINATION: US SCROTUM CLINICAL INFORMATION: Mass of left testicle. COMPARISON: Scrotal ultrasound 01/22/2024. TECHNIQUE: A sonogram of the scrotum was performed assessing sanz-scale appearance and color Doppler flow. Spectral Doppler analysis of the arterial and venous flow were performed in the testes bilaterally. FINDINGS: RIGHT: Right testicle measures 4.4 x 2.2 x 3.4 cm, volume 17.2 mL. No focal testicular parenchymal lesions are visualized. Spectral Doppler analysis of the arterial and venous flow is normal in the right testis. Right epididymal head is normal in size. A 6 mm wedge-shaped region of increased echogenicity in the right epididymal body, possibly reflecting dancing lanre sperm though difficult to confirm given lack of cine imaging. No right hydrocele or varicocele is seen. Right epididymal Doppler flow is normal. LEFT: Left testicle measures 4.4 x 2.4 x 3.2 cm, volume 17.7 mL. No focal testicular parenchymal lesions are visualized. Spectral Doppler analysis of the arterial and venous flow is normal in the left testis. Left epididymal head is normal in size. No left hydrocele or varicocele is seen. Left epididymal Doppler flow is normal. Previously seen solid lesion in the left epididymis is no longer appreciated. US/US scrotum IMPRESSION: 1. A 6 mm wedge-shaped region of increased echogenicity in the right epididymal body, possibly reflecting dancing lanre sperm though difficult to confirm given lack of cine imaging. 2. Previously seen solid lesion in the left epididymis on prior ultrasound is not appreciated on today's exam. Electronically signed by: Yessi Lira MD 05/02/2024 05:49 PM EDT
== END 2024-04-29 08:25 | disposition home or self-care (01) ==
LOC: HO.HMGCX 08:24
PROVIDERS: PCP Internal Medicine; Visit Provider Internal Medicine
DX: N50.89 Other specified disorders of the male genital organs (principal)
CPT/HCPCS: 76870

== ENCOUNTER 2024-07-11 06:51 | Outpatient (REF) | payer OTHER, SELFPAY ==
[2024-07-11 10:14] LABS: MANUAL DIFF FLAG NO
[2024-07-11 10:27] LABS: Basophils Percent Auto 0.9 % (0-2); Eosinophils Absolute Auto 0.3 X10*3/uL (0.0-0.4); Eosinophils Percent Auto 5.5 % (0-4); Hematocrit 42.3 % (42.0-52.0); Hemoglobin 14.9 g/dl (14.0-18.0); Imm Gran Abs Auto 0.01 X10*3/uL (0.00-0.03); Imm Gran Pct Auto 0.2 % (0.0-0.4); Lymphocytes Absolute Auto 1.7 X10*3/uL (1.2-4.9); Lymphocytes Percent Auto 36.9 % (20-40); Mean Corpuscular HGB Conc 35.2 g/dl (31.0-36.0); Mean Corpuscular Hemoglobin 31.8 pg (27.0-33.0); Mean Corpuscular Volume 90.2 fL (80.0-98.0); Mean Platelet Volume 10.8 fL (9.4-12.4); Monocytes Absolute Auto 0.6 X10*3/uL (0.1-1.2); Monocytes Percent Auto 12.2 % (2-11); Neutrophils Absolute Auto 2.1 x10*3/uL (2.0-8.3); Neutrophils Percent Auto 44.3 % (45-73); Platelet Count 208 X10*3/uL (160-400); Red Blood Count 4.69 X10*6/uL (4.60-5.80); Red Cell Distribution Width 12.8 % (11.0-16.0); White Blood Count 4.7 X10*3/uL (4.8-10.8)
[2024-07-11 10:51] LABS: Alanine Aminotransferase 49 U/L (0-40); Albumin Level 3.9 g/dL (3.5-5.0); Alkaline Phosphatase 43 U/L (39-117); Anion Gap 11 (12-20); Aspartate Amino Transferase 37 U/L (5-37); Bilirubin Total 0.8 mg/dL (0.0-1.0); Blood Urea Nitrogen 18 mg/dL (9-16); Carbon Dioxide 26 mmol/L (22-29); Chloride 107 mmol/L (96-108); Cholesterol 196 mg/dL (<200); Estimated Glomerular Filt Rate > 60; Glucose Fasting 129 mg/dL (60-99); HDL Cholesterol 53 mg/dL (>40); LDL Cholesterol Calculated 124 mg/dL (<100); Sodium 140 mmol/L (135-145); Total Protein 6.7 g/dL (6.5-8.0); Triglycerides 97 mg/dL (<150)
[2024-07-11 10:58] LABS: PSA,Total (Free>4and<10) 1.66 ng/mL (0.00-4.00)
[2024-07-11 11:10] LABS: Thyroid Stimulating Hormone 2.57 uIU/mL (0.32-4.0); Vitamin D 25-OH Total 52.2 ng/mL (>30)
== END 2024-07-11 06:52 | disposition home or self-care (01) ==
LOC: HO.HMGCLDS 06:51
PROVIDERS: PCP Internal Medicine; Visit Provider Internal Medicine
DX: Z00.00 Encounter for general adult medical examination without abnormal findings (principal); Z12.5 Encounter for screening for malignant neoplasm of prostate; E78.00 Pure hypercholesterolemia, unspecified; I10 Essential (primary) hypertension; E55.9 Vitamin D deficiency, unspecified
CPT/HCPCS: 36415; 80053; 80061; 82306; 84153; 84443; 85025

== ENCOUNTER 2024-11-19 15:02 | Outpatient (AMB) | payer OTHER, SELFPAY ==
--- NOTE | 2024-11-19 15:05 | MHC.PC.OV ---
Vital Signs 11/19/24 15:07 Height 5 ft 9 in Weight 194 lb BMI 28.6 BP 118/78 Respiration 14 Pulse 56 Pulse Source Pulse Oximeter Temp 98.0 F Temp Source Temporal Artery Scan Pulse Oximetry (%) 97 Oxygen Delivery Method Room Air Intake Visit Reasons: 3 month follow up Dormitory Maid Required: No Accompanied by: Self / Same As Patient Allergies amoxicillin [AMOXICILLIN] Allergy (Mild, Verified 11/24/24 09:28) ITCHING Medication List - Last Reconciled 11/24/24 by Wally Farmer MD ibuprofen (Advil) 400 mg PO Q6H PRN pravastatin 20 mg PO DAILY Tobacco use date assessed: 11/19/24 Dental Screening Dental Screen Date: 11/19/24 Did you have a dental visit in the last 12 months?: Yes Did you have a dental problem in the last 6 months where you did not have access to dental care?: No Was dental information given to patient?: Patient has dentist [facility] Medical History (Updated 11/24/24 @ 09:29 by Wally Farmer MD) Elevated cholesterol Anxiety and depression Hypercholesteremia Surgical History Hx of excision of mass Hx of rotator cuff surgery Hx of knee surgery H/O colonoscopy (~01/02/24) Family History Father Dementia Mother Diabetes BP (high blood pressure) Social History Housing: House Alcohol intake: current Alcohol intake frequency: holidays/special occasions only Patient Tobacco Use Status: Never used Tobacco service: No Current occupational status: employed Cognitive needs: No Hearing needs: No Vision needs: Yes (rx glasses) Questionnaire PHQ-9 Over the last 2 weeks, how often have you been bothered by any of the following problems? 1. Little interest or pleasure in doing things: not at all 2. Feeling down, depressed, or hopeless: not at all 3. Trouble falling or staying asleep, or sleeping too much: not at all 4. Feeling tired or having little energy: not at all 5. Poor appetite or overeating: not at all 6. Feeling bad about yourself - or that you are a failure or have let yourself or your family down: not at all 7. Trouble concentrating on things, such as reading the newspaper or watching television: not at all 8. Moving or speaking so slowly that other people could have noticed. Or the opposite - being so fidgety or restless that you have been moving around a lot more than usual: not at all 9. Thoughts that you would be better off or of hurting yourself in some way: not at all Total score: 0 Depression Screening Interpretation: Negative Depression Screening Done: Yes Source: Developed by Drs. Iftikhar Rodrigez, Monika Lincoln, Jarrod Krishnan and colleagues, with an educational cherie from [employer]. Thrive Questionnaire Date Thrive assessed: 11/19/24 I am a: Patient What is your living situation today?: I have a steady place to live Within the past 12 months, did the food you bought not last and you didn't have the money to get more?: Never true Within the past 12 months, did you worry whether your food would run out before you got money to buy more?: Never true Do you have trouble paying for medicines?: No Do you have trouble getting transportation to medical appointments?: No Do you have trouble paying your heating and electricity bill?: No Do you have trouble taking care of your child, family member or friend?: No Do you have trouble with day-to-day activities such as bathing, preparing meals, shopping, managing finances, etc.?: No Are you currently unemployed and looking for a job?: No Are you interested in more education?: No Please select the resources that you would like help with: None Currently or been in a relationship where the following occur: No concerns reported THRIVE Score: 0 AUDIT C Alcohol Use Questionnaire (AUDIT-C) 1. How often do you have a drink containing alcohol?: Monthly or less 2. How many drinks containing alcohol do you have on a typical day when you are drinking?: 1 or 2 3. How often do you have six or more drinks on one occasion?: Never Total Score: 1 VICKY-7 AMB Questionnaire VICKY-7 Date VICKY - 7 assessed: 11/19/24 Feeling nervous, anxious, or on edge: 0 = Not at all Not being able to stop or control worryin = Not at all Worrying too much about different things: 0 = Not at all Trouble relaxin = Not at all Being so restless that it is hard to sit still: 0 = Not at all Becoming easily annoyed or irritable: 0 = Not at all Feeling afraid as if something awful might happen: 0 = Not at all Total VICKY-7 score (0-4 normal; 5-9 mild; 10-14 moderate; 15-21 severe): 0 Source: Developed by Drs. Iftikhar Rodrigez, Monika Lincoln, Jarrod Krishnan and colleagues, with an educational cherie from [employer]. Physical exam (Primary Care) Vital Signs: Last Vital Signs Temp 98.0 F 11/19/24 15:07 Pulse 56 11/19/24 15:07 Resp 14 11/19/24 15:07 BP 118/78 11/19/24 15:07 Pulse Ox 97 11/19/24 15:07 Oxygen Delivery Method Room Air 11/19/24 15:07 Care Plan Goal for BP management: Blood pressure is in range. BMI result Body Mass Index 28.6 Tobacco/Smoking Status: Tobacco use Status Tobacco use date assessed 11/19/24 11/19/24 15:13 Patient Tobacco Use Status Never used Tobacco 11/19/24 15:13 PHQ-9: PHQ-9 Score PHQ-9: Total score 0 11/19/24 15:13 Depression Screening Interpretation: Negative Thrive Assessment: Date of Thrive Assessment Date Thrive assessed 11/19/24 11/19/24 15:13 Currently or been in a relationship where the following occur: No concerns reported Advance Care Planning discussion: Exists, not on file Date of discussion: 11/19/24 Forms completed: Health Care Proxy Time spent: 1-15 minutes, not on file Actual minutes spent: 5 Coding Level of Care Code New Pt Level 4 (78293) Complex EM visit Add On G2211 Diagnoses Hypercholesteremia E78.00 Additional Codes Vital Signs *Quality* - Advance Care Planning discussion: Exists, not on file ([id number]) Vital Signs *Quality* - Time spent: 1-15 minutes, not on file ([id number]) Assessment & Plan Assessment & Plan (1) Hypercholesteremia: Code(s): E78.00 - Pure hypercholesterolemia, unspecified Category: Medical Plan: Continue statins at same dosage. Plan History of Present Illness The patient is a 64-year-old male presenting for a wellness visit and follow-up on hyperlipidemia. He previously had blood work completed in July which returned normal values, and he continues to take a statin for lipid management without issues. His colonoscopy was normal, conducted through [place]. He reports frequent urination associated with aging but denies any issues with urinary stream or incontinence. 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 Social History - Employment: Works as a training and documentation specialist, primarily from home - Living situation: Lives alone with periodic visits from adult children; daughter is in college - Driving and functional status: Drives at night without problems Review of Systems - Genitourinary: Reports frequent urination; Denies urinary hesitancy or incontinence - Sleep: Denies sleep disturbances Physical Exam General: Cooperative and healthy appearing Nutritional Appearance: Well nourished Orientation/consciousness: Patient oriented x3 Limitations: No limitations Head: Normal to inspection General: Appearance normal, both eyes and all related structures Neck: Normal visual inspection Chest: Normal palpation of entire chest wall Respiratory: Normal respiratory effort Neurology: Patient oriented x3 Results - Labs: Normal blood work in July - Tests: Normal recent colonoscopy from [place] Plan The patient will continue his current statin therapy for hyperlipidemia, as prior labs are well-managed. He is advised to monitor for any changes in urination, although current symptoms do not require intervention. Routine follow-ups are scheduled biannually. No additional tests or treatments are warranted at this time. Patient was informed and verbally consented to the use of an ambient scribe for clinic note documentation during this visit. Discussion Notes I discussed the continuation of his statin therapy for managing hyperlipidemia reference to normal blood work from July. I ensured understanding of contacting the pharmacy for medication refills when approaching scarcity, to maintain consistency in medication management. I confirmed that frequent urination did not require intervention due to the absence of concerning symptoms. I outlined the importance of continuing regular updates on his health status, and biannual visits are scheduled to monitor overall wellness. The patient consented to this plan. Patient Instructions - Continue taking your prescribed statin as directed. - Contact your pharmacy for refill reminders. - Report any changes in urination patterns. - Maintain regular health screenings. - Follow-up in six months unless new health concerns arise. - Stay active and maintain a healthy lifestyle.
[2024-11-19 15:07] VITALS: BP 118/78; PULSE 56; RESP 14; TEMP 36.7; O2SAT 97; BMI 28.6
== END 2024-11-19 15:41 | disposition home or self-care (01) ==
LOC: HO.HMCSH 15:02
PROVIDERS: PCP Internal Medicine; Visit Provider Internal Medicine
DX: E78.00 Pure hypercholesterolemia, unspecified (principal); Z00.00 Encounter for general adult medical examination without abnormal findings

== ENCOUNTER → 2024-11-19 15:02 | Outpatient (BNVA) | payer OTHER, SELFPAY | PROVIDERS: PCP Internal Medicine; Visit Provider Internal Medicine | DX: Z13.89 Encounter for screening for other disorder (principal) ==

== ENCOUNTER 2025-05-20 13:46 | Outpatient (AMB) | payer OTHER, SELFPAY ==
[2025-05-20 13:47] VITALS: BP 134/82; PULSE 52; RESP 16; TEMP 36.6; O2SAT 97; BMI 29.2
--- NOTE | 2025-05-20 13:47 | MHC.PC.OV ---
Vital Signs 05/20/25 13:47 Height 5 ft 9 in Weight 198 lb BMI 29.2 BP 134/82 Respiration 16 Pulse 52 Pulse Source Pulse Oximeter Temp 97.9 F Temp Source Temporal Artery Scan Pulse Oximetry (%) 97 Oxygen Delivery Method Room Air Intake Visit Reasons: 6 month f/u, hypercholesterolemia Labor Gang Supervisor Required: No Accompanied by: Self / Same As Patient Allergies amoxicillin (AMOXICILLIN) Allergy (Mild, Verified 05/20/25 13:48) ITCHING Tobacco use date assessed: 05/20/25 Dental Screening Dental Screen Date: 11/19/24 [facility] Medical History Elevated cholesterol Anxiety and depression Hypercholesteremia Surgical History Hx of excision of mass Hx of rotator cuff surgery Hx of knee surgery H/O colonoscopy (~01/02/24) Family History Father Dementia Mother Diabetes BP (high blood pressure) Social History Housing: House Alcohol intake: current Alcohol intake frequency: holidays/special occasions only Patient Tobacco Use Status: Never used Tobacco service: No Current occupational status: employed Cognitive needs: No Hearing needs: No Vision needs: Yes (rx glasses) Questionnaire PHQ-9 Over the last 2 weeks, how often have you been bothered by any of the following problems? 1. Little interest or pleasure in doing things: not at all 2. Feeling down, depressed, or hopeless: not at all 3. Trouble falling or staying asleep, or sleeping too much: not at all 4. Feeling tired or having little energy: not at all 5. Poor appetite or overeating: not at all 6. Feeling bad about yourself - or that you are a failure or have let yourself or your family down: not at all 7. Trouble concentrating on things, such as reading the newspaper or watching television: not at all 8. Moving or speaking so slowly that other people could have noticed. Or the opposite - being so fidgety or restless that you have been moving around a lot more than usual: not at all 9. Thoughts that you would be better off or of hurting yourself in some way: not at all Total score: 0 Depression Screening Interpretation: Negative Depression Screening Done: Yes Source: Developed by Drs. Iftikhar Rodrigez, Monika Lincoln, Jarrod Krishnan and colleagues, with an educational cherie from [employer]. Thrive Questionnaire Date Thrive assessed: 11/19/24 I am a: Patient What is your living situation today?: I have a steady place to live Within the past 12 months, did the food you bought not last and you didn't have the money to get more?: Never true Within the past 12 months, did you worry whether your food would run out before you got money to buy more?: Never true Do you have trouble paying for medicines?: No Do you have trouble getting transportation to medical appointments?: No Do you have trouble paying your heating and electricity bill?: No Do you have trouble taking care of your child, family member or friend?: No Do you have trouble with day-to-day activities such as bathing, preparing meals, shopping, managing finances, etc.?: No Are you currently unemployed and looking for a job?: No Are you interested in more education?: No Please select the resources that you would like help with: None Currently or been in a relationship where the following occur: No concerns reported THRIVE Score: 0 AUDIT C Alcohol Use Questionnaire (AUDIT-C) 1. How often do you have a drink containing alcohol?: Monthly or less 2. How many drinks containing alcohol do you have on a typical day when you are drinking?: 1 or 2 3. How often do you have six or more drinks on one occasion?: Never Total Score: 1 VICKY-7 AMB Questionnaire VICKY-7 Date VICKY - 7 assessed: 11/19/24 Feeling nervous, anxious, or on edge: 0 = Not at all Not being able to stop or control worryin = Not at all Worrying too much about different things: 0 = Not at all Trouble relaxin = Not at all Being so restless that it is hard to sit still: 0 = Not at all Becoming easily annoyed or irritable: 0 = Not at all Feeling afraid as if something awful might happen: 0 = Not at all Total VICKY-7 score (0-4 normal; 5-9 mild; 10-14 moderate; 15-21 severe): 0 Source: Developed by Drs. Iftikhar Rodrigez, Monika Lincoln, Jarrod Krishnan and colleagues, with an educational cherie from [employer]. Physical exam (Primary Care) Vital Signs: Last Vital Signs Temp 97.9 F 05/20/25 13:47 Pulse 52 05/20/25 13:47 Resp 16 05/20/25 13:47 BP 134/82 05/20/25 13:47 Pulse Ox 97 05/20/25 13:47 Oxygen Delivery Method Room Air 05/20/25 13:47 BMI result Body Mass Index 29.2 Tobacco/Smoking Status: Tobacco use Status Tobacco use date assessed 05/20/25 05/20/25 13:54 Patient Tobacco Use Status Never used Tobacco 05/20/25 13:48 PHQ-9: PHQ-9 Score PHQ-9: Total score 0 05/20/25 13:54 Depression Screening Interpretation: Negative Thrive Assessment: Date of Thrive Assessment Date Thrive assessed 11/19/24 05/20/25 13:48 Currently or been in a relationship where the following occur: No concerns reported Coding Level of Care Code Est Pt Level 4 (14681) Complex EM visit Add On G2211 Diagnoses Hypercholesteremia E78.00 Assessment & Plan Assessment & Plan (1) Hypercholesteremia: Code(s): E78.00 - Pure hypercholesterolemia, unspecified Category: Medical Plan: History of Present Illness - The patient is a 64-year-old male presenting with a wellness check. - Hyperlipidemia: The patient is on pravastatin 20 mg daily for elevated cholesterol levels. - Urinary issues: The patient reports no significant change in urination issues since the last visit. - Preventative care: The patient undergoes annual prostate examinations and is up to date with colonoscopy screenings. - Vaccinations: The patient agreed to receive the influenza vaccine during the visit and discussed the COVID-19 vaccine, which is recommended after age 65. - Exercise: The patient engages in physical activity approximately four times a week, including biking, jogging, stretching, and core exercises. Social History - Employment: The patient works as a director of education and training. - Exercise: The patient exercises about four times a week, including biking, jogging, stretching, and core exercises. Review of Systems - Genitourinary: Reports no significant change in urination issues. Physical Exam General: Cooperative and healthy appearing Nutritional Appearance: Well nourished Orientation/consciousness: Patient oriented x3 Limitations: No limitations Head: Normal to inspection General: Appearance normal, both eyes and all related structures Neck: Normal visual inspection Chest: Normal palpation of entire chest wall Respiratory: Everything is good ormal respiratory effort Neurology: Patient oriented x3 Results - Labs: Previous blood work was within normal range, with a follow-up planned. Plan - Continue pravastatin 20 mg daily for hyperlipidemia management. - Schedule and complete fasting blood work for routine monitoring. - Administer influenza vaccine during the visit. - Discuss COVID-19 vaccination, recommended after age 65. - Continue annual prostate examinations. Discussion Notes During the visit, I discussed the importance of continuing pravastatin for cholesterol management and the need for fasting blood work to monitor health parameters. We also talked about the benefits of receiving the influenza vaccine today and the COVID-19 vaccine recommendation for those over 65. I advised maintaining regular PSA and encouraged the patient to continue his exercise routine. Follow-up is scheduled for six months. Patient Instructions - Continue taking pravastatin 20 mg daily. - Schedule and complete fasting blood work as instructed. - Receive the influenza vaccine today. - Consider COVID-19 vaccination, especially after age 65. - Maintain regular prostate examinations. - Continue regular exercise routine. Orders: Orders Basic Metabolic Panel Today E78.00 - Pure hypercholesterolemia, unspecified Thyroid Stimulating Hormone Today E78.00 - Pure hypercholesterolemia, unspecified Complete Blood Count no Diff Today E78.00 - Pure hypercholesterolemia, unspecified Prostate Specific Antigen Scr Today E78.00 - Pure hypercholesterolemia, unspecified Lipid Panel Today E78.00 - Pure hypercholesterolemia, unspecified Liver Panel Today E78.00 - Pure hypercholesterolemia, unspecified UA and rflx microscopic Today E78.00 - Pure hypercholesterolemia, unspecified
== END 2025-05-20 14:13 | disposition home or self-care (01) ==
LOC: HO.HMCSH 13:46
PROVIDERS: PCP Internal Medicine; Visit Provider Internal Medicine
DX: E78.00 Pure hypercholesterolemia, unspecified (principal); Z23 Encounter for immunization

== ENCOUNTER → 2025-05-20 13:46 | Outpatient (BNVA) | payer OTHER, SELFPAY | PROVIDERS: PCP Internal Medicine; Visit Provider Internal Medicine | DX: E78.00 Pure hypercholesterolemia, unspecified (principal); Z23 Encounter for immunization | CPT/HCPCS: 90471; 90656; 96127 ==

== ENCOUNTER 2025-07-08 06:22 | Outpatient (REF) | payer OTHER, SELFPAY ==
[2025-07-08 10:11] LABS: Appearance Urine Clear; Glucose Urine UA Negative (Negative); PH 6.0 (5.0-9.0); Specific Gravity - Urine 1.015 (1.005-1.025)
[2025-07-08 10:24] LABS: Hematocrit 44.1 % (42.0-52.0); Hemoglobin 15.7 g/dl (14.0-18.0); Mean Corpuscular HGB Conc 35.6 g/dl (31.0-36.0); Mean Corpuscular Hemoglobin 31.7 pg (27.0-33.0); Mean Corpuscular Volume 88.9 fL (80.0-98.0); NRBC Abs Auto 0.000 X10*3/uL (0.0-0.012); NRBC Pct Auto 0.0 /100WBC (0.0-0.2); Platelet Count 214 X10*3/uL (160-400); Red Blood Count 4.96 X10*6/uL (4.60-5.80); White Blood Count 5.6 X10*3/uL (4.8-10.8)
[2025-07-08 10:43] LABS: Alanine Aminotransferase 30 U/L (0-40); Albumin Level 4.2 g/dL (3.5-5.0); Alkaline Phosphatase 48 U/L (39-117); Anion Gap 11 (12-20); Aspartate Amino Transferase 29 U/L (5-37); Blood Urea Nitrogen 19 mg/dL (9-16); Calcium 9.0 mg/dL (8.4-10.2); Carbon Dioxide 26 mmol/L (22-29); Chloride 107 mmol/L (96-108); Cholesterol 210 mg/dL (<200); Estimated Glomerular Filt Rate > 60; HDL Cholesterol 58 mg/dL (>40); Potassium 4.2 mmol/L (3.3-5.1); Sodium 140 mmol/L (135-145); Total Protein 6.8 g/dL (6.5-8.0); Triglycerides 130 mg/dL (<150)
[2025-07-08 11:07] LABS: Thyroid Stimulating Hormone 2.78 uIU/mL (0.32-4.0)
== END 2025-07-08 06:23 | disposition home or self-care (01) ==
LOC: HO.HMGCLDS 06:22
PROVIDERS: PCP Internal Medicine; Visit Provider Internal Medicine
DX: Z12.5 Encounter for screening for malignant neoplasm of prostate (principal); E78.00 Pure hypercholesterolemia, unspecified
CPT/HCPCS: 36415; 80048; 80061; 80076; 81003; 84153; 84443; 85027

== ENCOUNTER 2025-07-22 15:02 | Outpatient (AMB) | payer OTHER, SELFPAY ==
--- NOTE | 2025-07-22 15:04 | A.OFFPC_ITS ---
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 - He has a history of high cholesterol, for which he takes pravastatin. - He had a colonoscopy on January 02, 2024, and is due for his next screening in five years. - He reports receiving his flu shot in [facility]. - He had an eye exam recently. 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 - Substance Use: He denies smoking and d rug use and reports occasional alcohol consumption. - Living Situation: He lives alone and h is 22-year-old daughter, who is in graduate school, sometimes stays with him. - Functional Status: He does his own [employer]. Results - Lab results from July 08: - Complete blood count (CBC): No anemia noted. - Comprehensive metabolic panel (CMP): K idney functions are normal. Bilirubin is normal. - Glucose: 118 mg/dL (random). - Lipid panel: LDL cholesterol is 126 mg /dL. - Prostate-specific antigen (PSA): Ghislaine l. - Thyroid-stimulating hormone (TSH): Nor mal. PFSH Medical History Elevated cholesterol Anxiety and depression Hypercholesteremia Surgical History Hx of excision of mass Hx of rotator cuff surgery Hx of knee surgery H/O colonoscopy (~01/02/24) Family History Father Dementia Mother Diabetes BP (high blood pressure) Social History Housing: House Alcohol intake: current Alcohol intake frequency: holidays/special occasions only Patient Tobacco Use Status: Never used Tobacco service: No Current occupational status: employed Cognitive needs: No Hearing needs: No Vision needs: Yes (rx glasses) Questionnaire PHQ-9 Over the last 2 weeks, how often have you been bothered by any of the following problems? 1. Little interest or pleasure in doing things: not at all 2. Feeling down, depressed, or hopeless: not at all 3. Trouble falling or staying asleep, or sleeping too much: not at all 4. Feeling tired or having little energy: not at all 5. Poor appetite or overeating: not at all 6. Feeling bad about yourself - or that you are a failure or have let yourself or your family down: not at all 7. Trouble concentrating on things, such as reading the newspaper or watching television: not at all 8. Moving or speaking so slowly that other people could have noticed. Or the opposite - being so fidgety or restless that you have been moving around a lot m ore than usual: not at all 9. Thoughts that you would be better off or of hurting yourself in some way: not at all Total score: 0 Depression Screening Interpretation: Negative Depression Screening Done: Yes Source: Developed by Drs. Iftikhar Rodrigez, Monika Lincoln, Jarrod Krishnan and colleagues, with an educational cherie from [employer] Thrive Questionnaire Date Thrive assessed: 11/19/24 I am a: Patient What is your living situation today?: I have a steady place to live Within the past 12 months, did the food you bought not last and you didn't have the money to get more?: Never true Within the past 12 months, did you worry whether your food would run out before you got money to buy more?: Never true Do you have trouble paying for medicines?: No Do you have trouble getting transportation to medical appointments?: No Do you have trouble paying your heating and electricity bill?: No Do you have trouble taking care of your child, family member or friend?: No Do you have trouble with day-to-day activities such as bathing, preparing meals, shopping, managing finances, etc.?: No Are you currently unemployed and looking for a job?: No Are you interested in more education?: No Please select the resources that you would like help with: None Currently or been in a relationship where the following occur: No concerns reported THRIVE Score: 0 AUDIT C Alcohol Use Questionnaire (AUDIT-C) 1. How often do you have a drink containing alcohol?: Monthly or less 2. How many drinks containing alcohol do you have on a typical day when you are drinking?: 1 or 2 3. How often do you have six or more drinks on one occasion?: Never Total Score: 1 VICKY-7 AMB Questionnaire VICKY-7 Date VICKY - 7 assessed: 11/19/24 Feeling nervous, anxious, or on edge: 0 = Not at all Not being able to stop or control worryin = Not at all Worrying too much about different things: 0 = Not at all Trouble relaxin = Not at all Being so restless that it is hard to sit still: 0 = Not at all Becoming easily annoyed or irritable: 0 = Not at all Feeling afraid as if something awful might happen: 0 = Not at all Total VICKY-7 score (0-4 normal; 5-9 mild; 10-14 moderate; 15-21 severe): 0 Source: Developed by Drs. Iftikhar Rodrigez, Monika Lincoln, Jarrod Krishnan and colleagues, with an educational cherie from [employer] Review of Systems Narrative Review of Systems - Constitutional: Denies any health concerns. - Eyes: Reports good vision. Denies seeing halos around lights. - Ears: Reports good hearing and can hear on the phone with both ears. - Gastrointestinal: Denies abdominal pain. Physical exam (Primary Care) Vital Signs: Last Vital Signs Temp 97.7 F 07/22/25 15:05 Pulse 66 07/22/25 15:05 Resp 14 07/22/25 15:05 BP 107/57 L 07/22/25 15:05 Pulse Ox 98 07/22/25 15:05 Oxygen Delivery Method Room Air 07/22/25 15:05 BMI result Body Mass Index 28.5 Tobacco/Smoking Status: Tobacco use Status Tobacco use date assessed 05/20/25 07/22/25 15:12 Patient Tobacco Use Status Never used Tobacco 07/22/25 15:12 PHQ-9: PHQ-9 Score PHQ-9: Total score 0 07/22/25 15:12 Depression Screening Interpretation: Negative Thrive Assessment: Date of Thrive Assessment Date Thrive assessed 11/19/24 07/22/25 15:12 Currently or been in a relationship where the following occur: No concerns reported Narrative Physical Exam General: Cooperative and healthy appearing Nutritional Appearance: Well nourished Orientation/consciousness: Patient oriented x3 Limitations: No limitations Head: Normal to inspection General: Appearance normal, both eyes and all related structures Neck: Normal visual inspection Chest: Normal palpation of entire chest wall Respiratory: Normal respiratory effort Neurology: Patient oriented x3 Coding Level of Care Code Est Pt Level 4 (35952) Add On Problem Visit Only Diagnoses Annual physical exam Z00.00 Assessment & Plan Assessment & Plan (1) Annual physical exam: Code(s): Z00.00 - Encounter for general adult medical examination without abnormal findings Plan Plan - Continue pravastatin for hypercholesterolemia. - Follow up in six months to recheck cholesterol levels. - Return for an annual physical in one year. Discussion Notes I reviewed the patient's recent lab work with him, noting that his LDL cholesterol was slightly elevated at 126, while other results, including kidney function, PSA, and thyroid studies, were normal. I advised him to continue his current dose of pravastatin and confirmed he does not need a refill at this time. We discussed that due to his cholesterol, he should have follow-up lab work in six months, alternating with his annual physical exam. Patient Instructions - Continue taking your pravastatin medication as prescribed for your cholesterol. - Please schedule a follow-up appointment in six months to check your cholesterol levels. - You will have a lab check-in once every six months and a full physical exam once a year.
[2025-07-22 15:05] VITALS: BP 107/57; PULSE 66; RESP 14; TEMP 36.5; O2SAT 98; BMI 28.5
== END 2025-07-22 15:37 | disposition home or self-care (01) ==
LOC: HO.HMCSH 15:02
PROVIDERS: PCP Internal Medicine; Visit Provider Internal Medicine
DX: E78.00 Pure hypercholesterolemia, unspecified (principal)